=== PATIENT | female | born 2000 | race Caucasian/White ===

== ENCOUNTER → 2020-06-03 | Outpatient (CLI) | payer OTHER ==
[~2020-06-03] MED LIST: COLACE 100MG C100 MG PO; FEOSOL325 MG PO; FERROUS SULFAT325 M2 PO; HYDROCODON-ACE1 EAC6 PO; IBUPROFEN600 MG PO; LEVOFLOXACIN750 MG PO; PRENATA CHEWAB1 EACH PO
== END ==
LOC: GENOP 22:47
DX: O12.02 Gestational edema, second trimester (principal); O99.891 Other specified diseases and conditions complicating pregnancy; R03.0 Elevated blood-pressure reading, without diagnosis of hypertension; R51.9 Headache, unspecified; Z3A.25 25 weeks gestation of pregnancy
CPT/HCPCS: G0463

== ENCOUNTER 2020-08-15 01:00 | Outpatient (CLI) | payer OTHER ==
[2020-08-15 02:02] LABS: HEMOGLOBIN 13.5 gm/dl (12.3-15.3); RED BLOOD COUNT 4.67 M/UL (4.00-5.10); WHITE BLOOD COUNT 16.1 K/UL (4.5-11.0)
[2020-08-15 02:32] LABS: BUN/CREATININE RATIO 9 (0-10)
[2020-09-21] MEDS ORDERED: LEVOFLOXACIN750 MG PO (10:25)
[2020-09-21] MEDS ORDERED: FEOSOL325 MG PO (10:25)
== END 2020-08-15 08:45 | disposition home or self-care (01) ==
LOC: GENOP 01:00
PROVIDERS: Obstetrics & Gynecology
DX: O47.03 False labor before 37 completed weeks of gestation, third trimester (principal); O99.891 Other specified diseases and conditions complicating pregnancy; M79.89 Other specified soft tissue disorders; R51.9 Headache, unspecified; O21.2 Late vomiting of pregnancy; Z88.0 Allergy status to penicillin; Z3A.35 35 weeks gestation of pregnancy
CPT/HCPCS: 36415; 80053; 80307; 81001; 82247; 82248; 82570; 84156; 84550; 85025; 85379; 85384; 85610; 85730; 96360; 96361

== ENCOUNTER 2020-08-25 17:24 | Inpatient (IN) | payer OTHER ==
[~2020-08-25] VITALS: Ht 160 cm; Wt 88.5 kg
[2020-08-25 18:32] LABS: HEMOGLOBIN 13.7 gm/dl (12.3-15.3); RED BLOOD COUNT 4.77 M/UL (4.00-5.10); WHITE BLOOD COUNT 15.2 K/UL (4.5-11.0)
[2020-08-25] MEDS ORDERED: PRENATA CHEWAB1 EACH PO (18:36)
[2020-08-26 08:54] LABS: BUN/CREATININE RATIO 19 (0-10)
[2020-08-26] MEDS ORDERED: IBUPROFEN600 MG PO (20:38)
[2020-08-26] MEDS ORDERED: HYDROCODON-ACE1 EAC6 PO (20:38)
[2020-08-26] MEDS ORDERED: COLACE 100MG C100 MG PO (20:38)
[2020-08-27 06:18] LABS: HEMOGLOBIN 10.2 gm/dl (12.3-15.3)
[2020-09-21] MEDS ORDERED: LEVOFLOXACIN750 MG PO (10:25)
[2020-09-21] MEDS ORDERED: FEOSOL325 MG PO (10:25)
== END 2020-08-28 16:49 | disposition home or self-care (01) | DRG 788 ==
LOC: GENOP 17:24 → OB 17:54
PROVIDERS: Obstetrics & Gynecology; ADMIT Obstetrics & Gynecology
PROC: 4A1HXCZ Monitoring of Products of Conception, Cardiac Rate, External Approach (ICD-10-PCS; 2020-08-25)
PROC: 3E033VJ Introduction of Other Hormone into Peripheral Vein, Percutaneous Approach (ICD-10-PCS; 2020-08-26)
PROC: 0U7C7ZZ Dilation of Cervix, Via Natural or Artificial Opening (ICD-10-PCS; 2020-08-26)
PROC: 10D00Z1 Extraction of Products of Conception, Low, Open Approach (ICD-10-PCS; principal; 2020-08-26 20:48)
DX: O13.4 Gestational [pregnancy-induced] hypertension without significant proteinuria, complicating childbirth (principal); Z37.0 Single live birth; Z3A.37 37 weeks gestation of pregnancy; Z20.822 Contact with and (suspected) exposure to COVID-19; O66.40 Failed trial of labor, unspecified; O76 Abnormality in fetal heart rate and rhythm complicating labor and delivery; O34.83 Maternal care for other abnormalities of pelvic organs, third trimester
CPT/HCPCS: 36415; 80053; 81001; 82800; 84550; 85014; 85018; 85025; C9113; J1580; J1650; J1885; J2001; J2250; J2274; J2405; J2590; J2765; J2795; J3010; J7120; U0002

== ENCOUNTER 2020-09-10 12:50 | Emergency (ER) | payer OTHER ==
[~2020-09-10 12:50] MED LIST changes: -FEOSOL325 MG PO; -FERROUS SULFAT325 M2 PO; -LEVOFLOXACIN750 MG PO
[2020-09-10 14:32] LABS: RED BLOOD COUNT 4.05 M/UL (4.00-5.10); WHITE BLOOD COUNT 12.8 K/UL (4.5-11.0)
[2020-09-10 14:49] LABS: BUN/CREATININE RATIO 20 (0-10)
[2020-09-21] MEDS ORDERED: FEOSOL325 MG PO (10:25)
[2020-09-21] MEDS ORDERED: LEVOFLOXACIN750 MG PO (10:25)
== END 2020-09-10 17:00 | disposition home or self-care (01) ==
LOC: ER1 12:50
PROVIDERS: Physician Assistant
DX: M54.31 Sciatica, right side (principal); R00.0 Tachycardia, unspecified; Z88.0 Allergy status to penicillin
CPT/HCPCS: 80053; 85025; 93005; 96374; 99284; J1885; Q9967

== ENCOUNTER 2020-09-14 19:13 | Inpatient (IN) | payer OTHER ==
[~2020-09-14] VITALS: Ht 160 cm; Wt 74.8 kg
[2020-09-14 20:07] LABS: HEMOGLOBIN 10.2 gm/dl (12.3-15.3); RED BLOOD COUNT 3.85 M/UL (4.00-5.10); WHITE BLOOD COUNT 15.2 K/UL (4.5-11.0)
[2020-09-14 20:27] LABS: BUN/CREATININE RATIO 25 (0-10)
[2020-09-17 10:48] LABS: HEMOGLOBIN 8.9 gm/dl (12.3-15.3)
[2020-09-17 10:56] LABS: RED BLOOD COUNT 3.42 M/UL (4.00-5.10); WHITE BLOOD COUNT 11.2 K/UL (4.5-11.0)
[2020-09-18 07:03] LABS: ACINETOBACTER BAUMANNII Not Detected (Negative); CANDIDA ALBICANS Not Detected (Negative); CANDIDA KRUSEI Not Detected (Negative); CANDIDA TROPICALIS Not Detected (Negative); ENTEROCOCCUS Not Detected (Negative); ESCHERICHIA COLI Not Detected (Negative); HAEMOPHILUS INFLUENZAE Not Detected (Negative); KLEBSIELLA OXYTOCA Not Detected (Negative); KLEBSIELLA PNEUMONIAE Not Detected (Negative); KPC-CARBAPENEM-RESISTANCE GENE Not Detected (Negative); PROTEUS Not Detected (Negative); PSEUDOMONAS AERUGINOSA Not Detected (Negative); SERRATIA MARCESANS Not Detected (Negative); STREP AGALACTIAE (GROUP B) Not Detected (Negative); STREP PYOGENES (GROUP A) Not Detected (Negative); STREPTOCOCCUS Not Detected (Negative); mecA (METHICILLIN RESIST GENE Not Detected (Negative); vanA/B (VANCOMYCIN RESIST GENE Not Detected (Negative)
[2020-09-18 08:27] LABS: STAPHYLOCOCCUS DETECTED (Negative); STAPHYLOCOCCUS AUREUS DETECTED (Negative)
[2020-09-18 09:55] LABS: BUN/CREATININE RATIO 11 (0-10)
[2020-09-19 04:27] LABS: HEMOGLOBIN 8.9 gm/dl (12.3-15.3); RED BLOOD COUNT 3.44 M/UL (4.00-5.10)
[2020-09-19 04:31] LABS: WHITE BLOOD COUNT 7.4 K/UL (4.5-11.0)
[2020-09-19 04:53] LABS: BUN/CREATININE RATIO 12 (0-10)
[2020-09-20 03:23] LABS: HEMOGLOBIN 9.3 gm/dl (12.3-15.3); RED BLOOD COUNT 3.63 M/UL (4.00-5.10); WHITE BLOOD COUNT 8.9 K/UL (4.5-11.0)
[2020-09-20 03:38] LABS: BUN/CREATININE RATIO 14 (0-10)
[2020-09-20] MEDS ORDERED: LEVOFLOXACIN750 MG PO (14:01)
[2020-09-20] MEDS ORDERED: FERROUS SULFAT325 M2 PO (14:05)
[2020-09-21] MEDS ORDERED: FEOSOL325 MG PO (10:25)
[2020-09-21] MEDS ORDERED: LEVOFLOXACIN750 MG PO (10:25)
== END 2020-09-20 17:42 | disposition home or self-care (01) | DRG 776 ==
LOC: ER1 19:13 → MED SURG 4 22:50 → CDU 22:50 → MED SURG 4 09-15 00:26
PROVIDERS: Internal Medicine; Obstetrics & Gynecology; ADMIT Obstetrics & Gynecology
PROC: 3E0U33Z Introduction of Anti-inflammatory into Joints, Percutaneous Approach (ICD-10-PCS; 2020-09-16)
PROC: 3E0U3BZ Introduction of Anesthetic Agent into Joints, Percutaneous Approach (ICD-10-PCS; 2020-09-16)
PROC: 02HV33Z Insertion of Infusion Device into Superior Vena Cava, Percutaneous Approach (ICD-10-PCS; principal; 2020-09-20)
PROC: B548ZZA Ultrasonography of Superior Vena Cava, Guidance (ICD-10-PCS; 2020-09-20)
DX: O99.893 Other specified diseases and conditions complicating puerperium (principal); M00.051 Staphylococcal arthritis, right hip; M86.9 Osteomyelitis, unspecified; B95.61 Methicillin susceptible Staphylococcus aureus infection as the cause of diseases classified elsewhere; O86.22 Infection of bladder following delivery; B96.20 Unspecified Escherichia coli [E. coli] as the cause of diseases classified elsewhere; D47.3 Essential (hemorrhagic) thrombocythemia; M70.61 Trochanteric bursitis, right hip; M76.891 Other specified enthesopathies of right lower limb, excluding foot; O13.5 Gestational [pregnancy-induced] hypertension without significant proteinuria, complicating the puerperium; D64.9 Anemia, unspecified; Z98.891 History of uterine scar from previous surgery; Z88.0 Allergy status to penicillin; Z79.899 Other long term (current) drug therapy
CPT/HCPCS: ECHO; 36415; 71045; 72192; 73502; 80048; 80053; 80202; 81001; 85025; 85027; 87040; 87077; 87086; 87150; 87186; 93005; 93306; 93971; 96374; 96375; 96376; 97110-GP-CQ; 97116; 97116-GP-CQ; 97161; 97530; 99285; C1751; G0378; J0878; J1580; J1885; J1956; J2270; J2405; J3301; J3370; J7030; J7070; J7120

== ENCOUNTER 2020-10-26 16:15 | Emergency (ER) | payer OTHER ==
[~2020-10-26 16:15] MED LIST changes: +FEOSOL325 MG PO; +FERROUS SULFAT325 M2 PO; +LEVOFLOXACIN750 MG PO
== END 2020-10-26 20:05 | disposition home or self-care (01) ==
LOC: ER1 16:15
DX: R07.9 Chest pain, unspecified (principal)
CPT/HCPCS: 71045; 93005; 99285

== ENCOUNTER → 2020-11-17 | Outpatient (CLI) | payer OTHER ==
[2020-11-17 12:48] LABS: WHITE BLOOD COUNT 9.9 K/UL (4.5-11.0)
== END ==
LOC: LAB 10:39
PROVIDERS: Nurse Practitioner
DX: M25.551 Pain in right hip (principal); Z86.19 Personal history of other infectious and parasitic diseases
CPT/HCPCS: 36415; 85048; 85652; 86140

== ENCOUNTER → 2020-11-24 | Outpatient (CLI) | payer OTHER | LOC: KOH-I 14:57 | DX: S76.011A Strain of muscle, fascia and tendon of right hip, initial encounter (principal) | CPT/HCPCS: 73721 ==